=== PATIENT | female | born 1975 | race Caucasian/White ===

== ENCOUNTER 2016-07-25 07:54 | Emergency (ER) | payer BC ==
[~2016-07-25] VITALS: Ht 170.2 cm; Wt 70.4 kg
[2016-07-25 08:56] LABS: EOSINOPHIL COUNT 0.2 K/uL (0-0.3); IMMATURE GRANULOCYTE (%) 0.4 % (0.0-0.7); IMMATURE GRANULOCYTE COUNT 0.1 K/uL; INSTRUMENT ABS NEUTROPHIL CT 12.2 K/uL; LYMPHOCYTE COUNT 1.5 K/uL (1.0-2.8); MCH 33.2 PG (29.0-34.0); MCHC 33.4 G/DL (30.0-36.0); MCV 99.3 FL (83-99); MEAN PLAT.VOLUME 11.4 uM^3 (9.5-12.4); MONOCYTE (%) 8.9 % (3-12); MONOCYTE COUNT 1.4 K/uL (0-0.8); NEUTROPHIL (%) 79.8 % (45-76); NEUTROPHIL COUNT 12.2 K/uL (1.8-6.4); PLATELET COUNT 183 K/uL (156-360); RED BLOOD COUNT 4.43 M/uL (3.80-5.20); WHITE BLOOD COUNT 15.3 K/uL (4.1-10.2)
[2016-07-25 09:05] LABS: CHLORIDE 107 mEq/L (99-109)
[2016-07-25 09:06] LABS: SODIUM 139 mEq/L (136-147)
[2016-07-25 09:08] LABS: GLUCOSE 95 mg/dL (70-99)
[2016-07-25 09:09] LABS: ANION GAP 8 MEQ/L (2-14); D-DIMER ELISA 0.52 mg/L FEU (< 0.57); PROTHROMBIN TIME 9.8 (9.2-11.2)
[2016-07-25 09:10] LABS: TOTAL BILIRUBIN 0.6 mg/dL (0.0-1.0)
[2016-07-25 09:11] LABS: ALKALINE PHOSPHATASE 52 IU/L (3-129); GFR ESTIMATE (CALCULATED) > 59 mL/min/
[2016-07-25 09:13] LABS: UREA NITROGEN (BUN) 10 mg/dL (9-23)
[2016-07-25 09:17] LABS: TROP-I INTERPRETATION NEGATIVE; TROPONIN-I < 0.01 ng/mL (0.0-0.30)
[2016-07-25 09:20] LABS: QUANTITATIVE HCG < 4.0 MIU/ML
[2016-07-25] MEDS ORDERED: NAPROXEN500 MG PO (11:53)
[2016-07-25 12:19] LABS: TROP-I INTERPRETATION NEGATIVE; TROPONIN-I < 0.01 ng/mL (0.0-0.30)
[2016-07-25 12:59] LABS: ADD MIUA? YES; BILIRUBIN NEGATIVE; BLOOD NEGATIVE; COLOR YELLOW ((YELLOW)); GLUCOSE (STRIP) NEGATIVE; KETONES NEGATIVE; LEUKOCYTES NEGATIVE; NITRITE NEGATIVE; PROTEIN (STRIP) 30; UROBILINOGEN 0.2 MG/DL (0.2-1.0)
[2016-07-25 13:29] LABS: RED BLOOD CELLS NONE SEEN /HPF (0-5)
[2016-07-25 13:30] LABS: AMORPHOUS PHOSPHATE CRYSTALS 3+; BACTERIA 1+ /HPF; CASTS NONE SEEN /LPF; CRYSTALS PRESENT; EPITHELIAL CELLS RARE /HPF; MUCUS NONE SEEN /LPF; UCUL ADDED? NO; WHITE BLOOD CELLS NONE SEEN /HPF (0-5)
[2016-07-25 13:49] LABS: SPECIFIC GRAVITY 1.098 (1.000-1.030)
[2016-07-25] MEDS ORDERED: MACROBID100 MG PO (13:49)
[2016-07-25 15:48] VITALS: BP 98/62
== END 2016-07-25 15:49 | disposition home or self-care (01) ==
LOC: EME 07:54
PROVIDERS: Physician Assistant
DX: R07.89 Other chest pain (principal); N39.0 Urinary tract infection, site not specified
CPT/HCPCS: 71020; 71275; 74176; 80053; 81003; 84484; 84702; 85025; 85379; 85610; 93005; 99281; 99285; J1885; J3010; J7120